=== PATIENT | male | born 1970 | race Caucasian/White ===

== ENCOUNTER 2019-10-31 03:32 | Emergency (ER) | payer MEDICAID, SELFPAY ==
[2019-10-31 03:34] VITALS: BP 139/91; PULSE 102; RESP 16; TEMP 36.9; O2SAT 94; BMI 21.7
--- NOTE | 2019-10-31 03:34 | ED_ITS ---
Entered by Naomi Lomeli, acting as scribe for HPI - Psych General: Chief Complaint: Psychiatric Symptoms Stated Complaint: SI/ETOH Time Seen by Provider: 10/31/19 03:38 Source: EMS Mode of arrival: EMS Limitations: no limitations History of Present Illness: HPI Narrative: 49 yo m came to the er by [facility] Ems for si and etoh. Onset was last night. Ems states that he had about a gallon of vodka today and that he also has a plan of taking some pills. When asked if he is suicidal he denies any suicidality. Patient is difficult to talk to at this time no due to his intoxication. MD complaint: suicidal ideation Onset (ago): day(s) (last night) Duration: constant Relieving factors: none Exacerbating factors: none Context: recent alcohol abuse Associated psychiatric symptoms: depression Associated symptoms: Reports depression Treatments prior to arrival: none Details of plan: Pt states that he has a plan to take medication and not wake back up. Review of Systems General: Reports: other (negative unless marked ) Const: Denies: fever, chills, body aches or change in appetite Eyes: Denies: blurry vision or eye discomfort ENMT: Denies: throat pain or dental pain Card: Denies: chest pain Resp: Denies: shortness of breath GI: Denies: abdominal pain, nausea, vomiting or diarrhea : Denies: painful urination Musc: Denies: neck pain or back pain Skin/Breast: Denies: rash Neuro: Denies: headache Psych: Reports: depression Luis A/Lymph: Denies: easy bruising All/Imm: Denies: hives PFSH ED PFSH: Statuses (acute, chronic, etc) shown below reflect problem list status as previously entered and may not be historically accurate Social History Smoking and tobacco status: current every day smoker Physical Exam Const: COMMON NORMALS: no apparent distress, oriented x3 and healthy appearing HENMT: COMMON NORMALS: normocephalic and head/scalp atraumatic HEAD & SCALP: normocephalic and atraumatic Eye: COMMON NORMALS: PERRL and EOMs intact bilaterally PUPIL: Yes PERRL Neck/C-Spine: COMMON NORMALS: full ROM and supple Chest: COMMONS NORMALS: inspection of chest normal and palpation of chest normal Resp: COMMON NORMALS: normal respiratory effort, no retractions, no use of accessory muscles and clear to auscultation bilaterally AUSCULTATION: clear to auscultation bilaterally Cardio: COMMON NORMALS: regular rate, regular rhythm and no murmurs RATE: regular rate RHYTHM: regular rhythm GI: COMMON NORMALS: normal to inspection, nondistended, normoactive bowel sounds, soft to palpation, non-tender and no masses PALPATION: Yes soft Extremity: COMMON NORMALS: normal to inspection and full ROM Neuro: COMMON NORMALS: oriented x3, moves all extremities and no focal motor deficits Psych: COMMON NORMALS: cooperative OTHER: pt is intoxicated Skin: COMMON NORMALS: no rashes or lesions noted and no wounds GENERAL SKIN EXAM: no rashes or lesions noted MDM - Psych MDM Narrative: Medical decision making narrative: Patient presents here with alcohol intoxication. Patient is not suicidal and I had Dr. Lerma interviewed patient and he believes patient is not suicidal or imminent threat to himself either. Will place patient on trazodone to help with sleeping and he is stable for discharge. He is to return if worsening. Lab Data: Labs: Lab Results 10/31/19 10/31/19 10/31/19 Range/Units 02:50 02:50 04:45 WBC 9.4 (4.0-10.0) 10^3/ uL RBC 4.72 (4.1-5.3) 10^6/u L Hgb 15.0 (11.7-16.6) g/dL Hct 45.5 (42.0-52.0) % MCV 96.4 H (80-94) fL MCH 31.8 (28.0-34.0) pg MCHC 33.0 (30.0-36.0) g/dL RDW 13.6 (12.1-15.1) % Plt Count 201 (130-400) 10^3/c mm MPV 10.3 (7.4-10.4) fL Neut % (Auto) 34.7 % Lymph % (Auto) 56.4 % [place] % (Auto) 5.1 % Eos % (Auto) 3.1 % Baso % (Auto) 0.5 % Neut # (Auto) 3.3 (1.8-7.7) 10^3/u L Lymph # (Auto) 5.3 H (0.8-4.8) 10^3/u L [place] # (Auto) 0.5 (0.2-0.9) 10^3/u L Eos # (Auto) 0.3 (0.0-0.8) 10^3/u L Baso # (Auto) 0.1 (0.0-0.1) 10^3/u L Nucleated RBC % (a uto) 0 % Nucleated RBCs # 0.0 /100WBC Sodium 143 (136-145) mmol/L Potassium 3.6 (3.5-5.1) mmol/L Chloride 103 (98-107) mmol/L Carbon Dioxide 26 (22-29) mmol/L Anion Gap 17.6 (5-19) BUN 10 (6-20) mg/dL Creatinine 0.9 (0.7-1.2) mg/dL GFR Calculation 89.0 L (90-130) mL/min Glucose 133 H (65-115) mg/dL Calcium 9.3 (8.5-10.5) mg/dL Total Bilirubin 0.2 (0.15-1.2) mg/dL AST 58 H (0-40) U/L ALT 63 H (0-41) U/L Alkaline Phosphata se 111 (40-130) IU/L Total Protein 6.8 (6.6-8.7) g/dL Albumin 3.9 (3.5-5.2) g/dL Globulin 2.9 (1.3-4.6) g/dL Salicylates < 0.3 L (3-10) mg/dL Urine Opiates Scre en Negative (Negative) ng/mL Acetaminophen < 5.0 L (10-30) ug/mL Ur Barbiturates Sc reen Negative (Negative) ng/mL Ur Phencyclidine S crn Negative (Negative) ng/mL Ur Amphetamines Sc reen Negative (Negative) ng/mL U Benzodiazepines Scrn Negative (Negative) ng/mL Urine Cocaine Scre en Negative (Negative) ng/mL U Marijuana (THC) Screen Negative (Negative) ng/mL Ethyl Alcohol 337 H* (0-10) mg/dL Discharge Plan Discharge Patient Disposition: Home, Self-Care Clinical Impression: Alcohol intoxication Qualifiers: Complication of substance-induced condition: uncomplicated Qualified Code(s): F10.920 - Alcohol use, unspecified with intoxication, uncomplicated Condition: Stable Prescriptions: New trazodone 100 mg tablet 100 mg PO DAILY PRN (Reason: insomnia) Qty: 14 RF: 0 Discharge Orders: Discharge Order (Routine); Ordered 10/31/19 Ordered By: Adrianna Davis Discharge Diet: Advance as tolerated Discharge Activity: Resume usual activity Patient Instructions: Alcohol Intoxication (ED) Discharge Date/Time: 10/31/19 06:55 Coding Level of Care Code ED Gripper Machine Operator for Chg Fwd Exam Problem Focused The documentation recorded by the Armani sandoval Stephanie Lyn, accurately reflects the service I personally performed and the decisions made by Susan berg Korby, MD Oct 31, 2019 03:32
--- NOTE | 2019-10-31 03:38 | XR_ITS ---
WS: [id number] PORTABLE CHEST HISTORY: dyspnea COMPARISON: 10/13/2016 Benign granuloma in the LEFT lower lung field. Lungs are otherwise clear. No pneumonia. Normal vascul ature. No pleural effusion or pneumothorax. Cardiac size: Normal. Mediastinum/Aorta: Mildly prominent pulmonary arteries. Early changes of pulmonary hypertension is farley spected. No osseous abnormality seen. XR/XR chest 1V portable [id number] IMPRESSION: 1. Benign granuloma LEFT lower lobe. 2. Early changes of mild pulmonary hypertension suspected.
[2019-10-31 03:48] VITALS: BP 134/99; PULSE 88; RESP 18; O2SAT 96
[2019-10-31 04:14] LABS: Basophils # 0.1 10^3/uL (0.0-0.1); Basophils % 0.5 %; Eosinophils # 0.3 10^3/uL (0.0-0.8); Eosinophils % 3.1 %; Hematocrit 45.5 % (42.0-52.0); Lymphocytes # 5.3 10^3/uL (0.8-4.8); Lymphocytes % 56.4 %; Mean Corpuscular Hemoglobin 31.8 pg (28.0-34.0); Mean Corpuscular Volume 96.4 fL (80-94); Mean Platelet Volume 10.3 fL (7.4-10.4); Monocytes # 0.5 10^3/uL (0.2-0.9); Monocytes % 5.1 %; Neutrophils # 3.3 10^3/uL (1.8-7.7); Neutrophils % 34.7 %; Nucleated Red Blood Cells % 0 %; Platelet Count 201 10^3/cmm (130-400); Red Blood Count 4.72 10^6/uL (4.1-5.3); Red Cell Distribution Width 13.6 % (12.1-15.1); White Blood Count 9.4 10^3/uL (4.0-10.0)
[2019-10-31 04:30] LABS: Alanine Aminotransferase 63 U/L (0-41); Albumin Level 3.9 g/dL (3.5-5.2); Alkaline Phosphatase 111 IU/L (40-130); Anion Gap 17.6 (5-19); Aspartate Amino Transferase 58 U/L (0-40); Blood Urea Nitrogen 10 mg/dL (6-20); Calcium 9.3 mg/dL (8.5-10.5); Carbon Dioxide 26 mmol/L (22-29); Chloride 103 mmol/L (98-107); Globulin 2.9 g/dL (1.3-4.6); Glucose 133 mg/dL (65-115); Potassium 3.6 mmol/L (3.5-5.1); Sodium 143 mmol/L (136-145); Total Bilirubin 0.2 mg/dL (0.15-1.2); Total Protein 6.8 g/dL (6.6-8.7)
[2019-10-31 04:58] LABS: Acetaminophen < 5.0 ug/mL (10-30); Salicylate < 0.3 mg/dL (3-10)
[2019-10-31 05:02] LABS: Alcohol Level 337 mg/dL (0-10)
[2019-10-31] MEDS: nicotine 21 mg Patch 1 PATCH TRANSDERMA (05:02)
[2019-10-31 05:28] LABS: Amphetamines Screen Urine Negative (Negative); Barbiturates Screen Urine Negative (Negative); Benzodiazepines Screen Urine Negative (Negative); Cocaine Screen Urine Negative (Negative); Opiate Screen Urine Negative (Negative); PCP Screen Urine Negative (Negative); THC Screen Urine Negative (Negative)
[2019-10-31] MEDS: morphine 4 mg/mL SDV 1 mL IVP (05:33)
== END 2019-10-31 06:55 | disposition home or self-care (01) ==
PROVIDERS: Emergency Provider Emergency Medicine
DX: F10.129 Alcohol abuse with intoxication, unspecified (principal); Y90.8 Blood alcohol level of 240 mg/100 ml or more; F17.200 Nicotine dependence, unspecified, uncomplicated
CPT/HCPCS: 71045; 80053; 80307; 85025; 96374; 99282; 99283; J2270

== ENCOUNTER 2019-11-03 17:34 | Emergency (ER) | payer MEDICAID, SELFPAY | END 2019-11-03 20:30 | disposition admitted as inpatient to this hospital (09) | LOC: ER 11-09 11:26 | PROVIDERS: Emergency Provider Family Medicine | DX: T43.222A Poisoning by selective serotonin reuptake inhibitors, intentional self-harm, initial encounter (principal); T42.6X2A Poisoning by other antiepileptic and sedative-hypnotic drugs, intentional self-harm, initial encounter; F10.920 Alcohol use, unspecified with intoxication, uncomplicated; T50.912A Poisoning by multiple unspecified drugs, medicaments and biological substances, intentional self-harm, initial encounter; F17.210 Nicotine dependence, cigarettes, uncomplicated; J44.9 Chronic obstructive pulmonary disease, unspecified; F41.9 Anxiety disorder, unspecified | CPT/HCPCS: 71045; 80053; 80074; 80307; 81003; 82607; 82746; 83690; 83735; 84100; 85025; 85610; 93005; 94640; 99284; 99285 ==

== ENCOUNTER 2019-11-03 17:34 | Inpatient (IN) | payer MEDICAID, SELFPAY ==
[2019-11-03] VITALS (11 sets, daily range): BP systolic 116–145; BP diastolic 63–99; PULSE 75–98; RESP 10–19; TEMP 36.6–37.1; O2SAT 94–98; BMI 24.7
--- NOTE | 2019-11-03 17:36 | ED_ITS ---
Entered by Cecilia Orozco, acting as scribe for Jeramie Timmons MD, MSM HPI - Overdose General: Chief Complaint: Overdose Stated Complaint: OVERDOSE Time Seen by Provider: 11/03/19 17:36 Source: patient, EMS and RN notes reviewed Mode of arrival: EMS Limitations: no limitations History of Present Illness: HPI Narrative: 49 yo male presents to ED with an overdose. When the doctor asked the patient how he was doing, the patient told the doctor I speak Russian how about you? The patient states he hurts everywhere . EMS reports the has taken 6-8 Paroxetine 40mg since yesterday (his prescription is to take one a day) and he has taken an unknown amount of Gabapentin 300mg (an old prescription that belongs to his girlfriend, dated 09.07.2016). He said he just wants to sleep; EMS was told he was having trouble with his girlfriend and he wanted to hurt himself. The patient has drank quite a bit of vodka today with the medication. EMS states the patient was kicked out of his girlfriend's house. complaint: intentional overdose Onset (ago): minute(s) (37 (0461)) Time: 17:05 Timing confirmed by: family member Substance Ingested: Gabapentin: Strength of Substance: 300 Paroxetine: Strength of Substance: 40 Number of Pills Ingested: 8 Total Dose: 320 : Intent: wanted to go to sleep How Overdose Was Discovered: called family/friend and called 911 Context: Intentional Overdose: relationship problems and drug/ETOH problems Associated symptoms: depression Treatments Prior to Arrival: none Review of Systems General: Reports: 10 or more systems reviewed and unremarkable except in HPI and below Const: Denies: fever, chills or body aches Eyes: Reports: blind spots; Denies: change in vision or blurry vision ENMT: Denies: throat pain, enlarged tonsils, painful swallowing, hoarseness, mouth pain or swelling of lips/tongue Card: Reports: chest pain; Denies: palpitations, irregular heart rhythm, edema or swelling of feet/ankles Resp: Denies: shortness of breath, productive cough or non-productive cough GI: Denies: abdominal pain, nausea or vomiting : Denies: flank pain, painful urination, urinary frequency, urinary urgency or urinary hesitancy Musc: Denies: neck pain, back pain or extremity swelling Skin/Breast: Denies: rash, itching or redness Neuro: Denies: headache, numbness in extremities or weakness in extremities Endo: Denies: excessive urination, excessive thirst or tired all the time PFS ED PFSH: Medical History (Updated 11/03/19 @ 20:07 by Jaspal Velarde MD) Alcohol intoxication Anxiety and depression Surgical History (Updated 11/03/19 @ 20:05 by Jaspal Velarde MD) H/O abdominal surgery Family History (Updated 11/03/19 @ 20:06 by Jaspal Velarde MD) Other Diabetes Social History (Updated 11/03/19 @ 20:06 by Jaspal Velarde MD) Smoking and tobacco status: current every day smoker Alcohol intake: current Alcohol intake frequency: 3 or more drinks per day Alcohol type: hard liquor Substance/Drug Use: never Physical Exam Const: COMMON NORMALS: no apparent distress, average body habitus, oriented x3, no limitations, healthy appearing and well nourished; negative for alert GENERAL APPEARANCE: lethargic ORIENTATION/CONSCIOUSNESS: Yes lethargic and Yes other (drowsy) HENMT: COMMON NORMALS: normocephalic, head/scalp atraumatic and moist oral mucous membranes HEAD & SCALP: normocephalic and atraumatic MOUTH: other (slurred speech) Eye: COMMON NORMALS: PERRL, EOMs intact bilaterally, conjunctivae normal and no scleral icterus CONJUNCTIVA: Yes conjunctivae normal PUPIL: Yes PERRL Neck/C-Spine: COMMON NORMALS: full ROM, supple, no meningeal signs, no JVD and no carotid bruits Chest: COMMONS NORMALS: inspection of chest normal and palpation of chest normal Resp: COMMON NORMALS: normal respiratory effort, no retractions, no use of accessory muscles, clear to auscultation bilaterally and percussion normal AUSCULTATION: clear to auscultation bilaterally and wheezes PERCUSSION: percussion normal Cardio: COMMON NORMALS: no JVD, regular rate, regular rhythm, S1 normal heart sound, S2 normal heart sound, no gallops, no clicks, no murmurs, no rub and peripheral pulses 2+ throughout RATE: regular rate RHYTHM: regular rhythm HEART SOUNDS: S1 normal and S2 normal PERIPHERAL PULSES: pulses 2+ throughout GI: COMMON NORMALS: normal to inspection, nondistended, normoactive bowel sounds, soft to palpation, non-tender, no hepatosplenomegaly, no masses and no bruits PALPATION: Yes soft and Yes no hepatosplenomegaly : COMMON NORMALS: Yes no CVA tenderness BLADDER/KIDNEY EXAM: Yes no CVA tenderness Back/Pelvis: COMMON NORMALS: no CVA tenderness Extremity: COMMON NORMALS: normal to inspection, full ROM, normal capillary refill, no calf tenderness and no pedal edema Neuro: COMMON NORMALS: oriented x3 SENSORIUM/ORIENTATION: No alert and Yes lethargic MENINGEAL SIGNS: Yes no meningeal signs Skin: COMMON NORMALS: no rashes or lesions noted, no wounds, skin turgor normal, no jaundice, no petechiae and no mottling GENERAL SKIN EXAM: no rashes or lesions noted and turgor normal Course Vital Signs: Vital signs: Vital Signs Temperature 98.7 F 11/03/19 20:40 Pulse Rate 91 11/03/19 20:55 Respiratory Rate 19 H 11/03/19 20:55 Blood Pressure 131/81 11/03/19 20:55 Pulse Oximetry 95 11/03/19 20:55 MDM - Overdose MDM Narrative: Medical decision making narrative: Patient who presented to the ED with an intentional drug overdose after his girlfriend kicked him out of her house. He is also intoxicated with alcohol. In the ED he was stable and his labs were unremarkable except for his elevated alcohol levels. EKG unremarkable. He is admitted to the ICU for further evaluation and management. Medical Records: Attestation: I reviewed the patient's medical records. Lab Data: Attestation: I reviewed the patient's lab results. Labs: Lab Results 11/03/19 11/03/19 11/03/19 Range/Units 17:47 17:47 17:47 WBC 7.7 (4.0-10.0) 10^3/ uL RBC 4.68 (4.1-5.3) 10^6/u L Hgb 14.4 (11.7-16.6) g/dL Hct 43.7 (42.0-52.0) % MCV 93.4 (80-94) fL MCH 30.8 (28.0-34.0) pg MCHC 33.0 (30.0-36.0) g/dL RDW 13.4 (12.1-15.1) % Plt Count 157 (130-400) 10^3/c mm MPV 10.0 (7.4-10.4) fL Neut % (Auto) 42.7 % Lymph % (Auto) 48.4 % [place] % (Auto) 5.8 % Eos % (Auto) 2.6 % Baso % (Auto) 0.4 % Neut # (Auto) 3.3 (1.8-7.7) 10^3/u L Lymph # (Auto) 3.7 (0.8-4.8) 10^3/u L [place] # (Auto) 0.4 (0.2-0.9) 10^3/u L Eos # (Auto) 0.2 (0.0-0.8) 10^3/u L Baso # (Auto) 0.0 (0.0-0.1) 10^3/u L Nucleated RBC % (a uto) 0 % Nucleated RBCs # 0.0 /100WBC PT (10.5-13.3) SECO NDS INR (0.8-1.2) Sodium 143 (136-145) mmol/L Potassium 4.0 (3.5-5.1) mmol/L Chloride 105 (98-107) mmol/L Carbon Dioxide 26 (22-29) mmol/L Anion Gap 16.0 (5-19) BUN 14 (6-20) mg/dL Creatinine 0.8 (0.7-1.2) mg/dL GFR Calculation 101.9 (90-130) mL/min Glucose 102 (65-115) mg/dL Calcium 9.1 (8.5-10.5) mg/dL Phosphorus 4.4 (2.5-4.5) mg/dL Magnesium 2.3 (1.7-2.3) mg/dL Total Bilirubin 0.2 (0.15-1.2) mg/dL AST 110 H (0-40) U/L ALT 59 H (0-41) U/L Alkaline Phosphata se 135 H (40-130) IU/L Total Protein 6.9 (6.6-8.7) g/dL Albumin 4.3 (3.5-5.2) g/dL Globulin 2.6 (1.3-4.6) g/dL Lipase 57 (13-60) U/L Urine Color (Yellow) Urine Appearance (CLEAR) Urine pH (5-7) Ur Specific Gravit y (1.005-1.030) Urine Protein (Negative) Urine Glucose (UA) (Normal) Urine Ketones (Negative) Urine Occult Blood (Negative) Urine Nitrate (Negative) Urine Bilirubin (NEGATIVE) Urine Urobilinogen (Negative) mg/dL Ur Leukocyte Pearl ase (Negative) Salicylates < 0.3 L (3-10) mg/dL Urine Opiates Scre en (Negative) ng/mL Acetaminophen < 5.0 L (10-30) ug/mL Ur Barbiturates Sc reen (Negative) ng/mL Ur Phencyclidine S crn (Negative) ng/mL Ur Amphetamines Sc reen (Negative) ng/mL U Benzodiazepines Scrn (Negative) ng/mL Urine Cocaine Scre en (Negative) ng/mL U Marijuana (THC) Screen (Negative) ng/mL Ethyl Alcohol 358 H* (0-10) mg/dL 11/03/19 11/03/19 11/03/19 Range/Units 17:47 17:57 17:57 WBC (4.0-10.0) 10^3/ uL RBC (4.1-5.3) 10^6/u L Hgb (11.7-16.6) g/dL Hct (42.0-52.0) % MCV (80-94) fL MCH (28.0-34.0) pg MCHC (30.0-36.0) g/dL RDW (12.1-15.1) % Plt Count (130-400) 10^3/c mm MPV (7.4-10.4) fL Neut % (Auto) % Lymph % (Auto) % [place] % (Auto) % Eos % (Auto) % Baso % (Auto) % Neut # (Auto) (1.8-7.7) 10^3/u L Lymph # (Auto) (0.8-4.8) 10^3/u L [place] # (Auto) (0.2-0.9) 10^3/u L Eos # (Auto) (0.0-0.8) 10^3/u L Baso # (Auto) (0.0-0.1) 10^3/u L Nucleated RBC % (a uto) % Nucleated RBCs # /100WBC PT 12.30 (10.5-13.3) SECO NDS INR 0.89 (0.8-1.2) Sodium (136-145) mmol/L Potassium (3.5-5.1) mmol/L Chloride (98-107) mmol/L Carbon Dioxide (22-29) mmol/L Anion Gap (5-19) BUN (6-20) mg/dL Creatinine (0.7-1.2) mg/dL GFR Calculation (90-130) mL/min Glucose (65-115) mg/dL Calcium (8.5-10.5) mg/dL Phosphorus (2.5-4.5) mg/dL Magnesium (1.7-2.3) mg/dL Total Bilirubin (0.15-1.2) mg/dL AST (0-40) U/L ALT (0-41) U/L Alkaline Phosphata se (40-130) IU/L Total Protein (6.6-8.7) g/dL Albumin (3.5-5.2) g/dL Globulin (1.3-4.6) g/dL Lipase (13-60) U/L Urine Color Yellow (Yellow) Urine Appearance Clear (CLEAR) Urine pH 5 (5-7) Ur Specific Gravit y 1.015 (1.005-1.030) Urine Protein Neg (Negative) Urine Glucose (UA) Norm (Normal) Urine Ketones Negative (Negative) Urine Occult Blood Neg (Negative) Urine Nitrate Negative (Negative) Urine Bilirubin Neg (NEGATIVE) Urine Urobilinogen Norm (Negative) mg/dL Ur Leukocyte Pearl [place] Negative (Negative) Salicylates (3-10) mg/dL Urine Opiates Scre en Negative (Negative) ng/mL Acetaminophen (10-30) ug/mL Ur Barbiturates Sc reen Negative (Negative) ng/mL Ur Phencyclidine S crn Negative (Negative) ng/mL Ur Amphetamines Sc reen Negative (Negative) ng/mL U Benzodiazepines Scrn Negative (Negative) ng/mL Urine Cocaine Scre en Negative (Negative) ng/mL U Marijuana (THC) Screen Negative (Negative) ng/mL Ethyl Alcohol (0-10) mg/dL EKG Data^: EKG 1: Attestation: I personally reviewed and interpreted this EKG as follows: EKG interpretation date: 11/03/19 EKG interpretation time: 17:58 Prior EKG tracings: not available for review Interpretation: Normal sinus rhythm. Heart rate 82. No ST changes. Normal axis. Discharge Plan Discharge Patient Disposition: Admitted As Inpatient Admit Provider: Jaspal Velarde Clinical Impression: Intentional overdose of selective serotonin reuptake inhibitor (SSRI) Qualifiers: Encounter type: initial encounter Qualified Code(s): T43.222A - Poisoning by selective serotonin reuptake inhibitors, intentional self-harm, initial encounter Alcohol intoxication Qualifiers: Complication of substance-induced condition: uncomplicated Qualified Code(s): F10.920 - Alcohol use, unspecified with intoxication, uncomplicated Suicide attempt by multiple drug overdose Qualifiers: Encounter type: initial encounter Qualified Code(s): T50.912A - Poisoning by multiple unspecified drugs, medicaments and biological substances, intentional self-harm, initial encounter Gabapentin overdose Qualifiers: Encounter type: initial encounter Injury intent: intentional self-harm Qualified Code(s): T42.6X2A - Poisoning by other antiepileptic and sedative- hypnotic drugs, intentional self-harm, initial encounter Condition: Stable Discharge Date/Time: 11/03/19 20:30 Coding Level of Care Code ED Printing Press Machine Operator for Chg Fwd Exam Comprehensive The documentation recorded by the Pam sandoval Valerie R, accurately reflects the service I personally performed and the decisions made by Shanelle berg Adegoke I, MD, [facility] Nov 03, 2019 17:34
--- NOTE | 2019-11-03 17:45 | XR_ITS ---
WS: [id number] XR chest 1V portable [id number] REASON FOR EXAM: overdose FINDINGS: Comparisons were made to October 31, 2019. A granuloma is seen in the mid left chest unchanged since earlier exam. No pleural effusion, pulmonary edema, pneumonia, or mass effect. The hilum and mediastinum are normal. XR/XR chest 1V portable [id number] IMPRESSION: Negative chest for active pathology.
--- NOTE | 2019-11-03 17:45 | ECG_ITS ---
Measurements Intervals [place] Rate: 82 P: 66 [place]: 138 QRS: 78 QRSD: 97 T: 74 QT: 370 QTc: 433 SINUS RHYTHM Compared to ECG 10/13/2016 21:29:39 No significant changes Electronically Signed On 11-04-2019 9:12:42 CRUSHER AND BINDER OPERATOR by Slava Aguilar M.D. [email or web address]
--- NOTE | 2019-11-03 18:00 | PC.NURSE ---
Patient refuses to answer [place] suicide assessment questions. Patient closes his eyes and repeats I plead the fifth on that one.
[2019-11-03 18:01] LABS: Basophils % 0.4 %; Eosinophils # 0.2 10^3/uL (0.0-0.8); Eosinophils % 2.6 %; Hematocrit 43.7 % (42.0-52.0); Hemoglobin 14.4 g/dL (11.7-16.6); Lymphocytes # 3.7 10^3/uL (0.8-4.8); Lymphocytes % 48.4 %; Mean Corpuscular Hemoglobin 30.8 pg (28.0-34.0); Mean Corpuscular Volume 93.4 fL (80-94); Monocytes # 0.4 10^3/uL (0.2-0.9); Monocytes % 5.8 %; Neutrophils # 3.3 10^3/uL (1.8-7.7); Neutrophils % 42.7 %; Nucleated Red Blood Cells % 0 %; Platelet Count 157 10^3/cmm (130-400); Red Blood Count 4.68 10^6/uL (4.1-5.3); Red Cell Distribution Width 13.4 % (12.1-15.1); White Blood Count 7.7 10^3/uL (4.0-10.0)
[2019-11-03 18:08] LABS: Add Urine Microscopic? NO
--- NOTE | 2019-11-03 18:12 | PC.NURSE ---
radiology in the room at this time
[2019-11-03 18:14] LABS: Bilirubin Urine Neg (NEGATIVE); Blood Urine Neg (Negative); Glucose Urine UA Norm (Normal); Ketones Urine Negative (Negative); Leukocyte Esterase Urine Negative (Negative); Nitrate Urine Negative (Negative); Protein Urine Neg (Negative); Specific Gravity, Urine 1.015 (1.005-1.030); Urine Appearance Clear (CLEAR); Urine Color Yellow (Yellow); Urobilinogen Urine Norm (Negative); pH Urine 5 (5-7)
[2019-11-03 18:15] LABS: Alanine Aminotransferase 59 U/L (0-41); Albumin Level 4.3 g/dL (3.5-5.2); Alkaline Phosphatase 135 IU/L (40-130); Aspartate Amino Transferase 110 U/L (0-40); Blood Urea Nitrogen 14 mg/dL (6-20); Calcium 9.1 mg/dL (8.5-10.5); Carbon Dioxide 26 mmol/L (22-29); Chloride 105 mmol/L (98-107); Globulin 2.6 g/dL (1.3-4.6); Glomerular Filtration Rate 101.9 mL/min (90-130); Glucose 102 mg/dL (65-115); Sodium 143 mmol/L (136-145); Total Bilirubin 0.2 mg/dL (0.15-1.2); Total Protein 6.9 g/dL (6.6-8.7)
[2019-11-03 18:18] LABS: Acetaminophen < 5.0 ug/mL (10-30); Salicylate < 0.3 mg/dL (3-10)
[2019-11-03 18:19] LABS: Alcohol Level 358 mg/dL (0-10)
[2019-11-03] MEDS: ipratropium-albuterol 3 mL Neb INHALATION (18:20)
--- NOTE | 2019-11-03 18:20 | PC.NURSE ---
Patient placed in trauma room 10 due to overdose status. Per both his girlfriend, Martha Strong and his brother via phone patient has been threatening and discussing suicide with them frequently and has addiction issues with alcohol; both parties have been informed that if they are available filling out an affidavit would be the best way to get help for the patient as they requested, they are unable to do this as the brother is out of state and the girlfriend lives in [place]. Patient is very indirect when asked about suicide and thoughts of suicide making inappropriate jokes and refusing to answer the questions for [place] scale, stating I plead the fifth.
--- NOTE | 2019-11-03 18:23 | PC.NURSE ---
Poison control contacted in regards to the medications patient took. Spoke with Flaca who states he is subtoxic on the Gabapentin and she does not have any worries regarding this ingestion; however the Paroxetine he does have increased risk for toxicity since he consumed >100mg. ED physician notified.
[2019-11-03 18:33] LABS: Amphetamines Screen Urine Negative (Negative); Barbiturates Screen Urine Negative (Negative); Benzodiazepines Screen Urine Negative (Negative); Cocaine Screen Urine Negative (Negative); Opiate Screen Urine Negative (Negative); PCP Screen Urine Negative (Negative); THC Screen Urine Negative (Negative)
[2019-11-03] MEDS: nicotine 21 mg Patch 1 PATCH TRANSDERMA (19:05)
--- NOTE | 2019-11-03 19:22 | PC.NURSE ---
Introduced self to patient and initiated vital signs. Patient presents A&O x 4. NAD, ABCs intact, MAEW and agreeable to treatment. Respirations are even and unlabored. Pt states medications taken before coming to ER are8- Paroxitine and 4 Gabepentin. Pt states that the chief complaint for the ER visit today is due to depression and SI. IV observed in left forearm. Pt denies any vision disturbances or lightheadedness. Bed left in lowest position in semi-fowlers with side rails up.Reassured patient of needs and will continue to monitor.
--- NOTE | 2019-11-03 19:56 | PM.HP ---
Providers/Chief Complaint Admitting Physician: Jaspal Velarde MD Chief Complaint: OVERDOSE History of Present Illness Erik Laws is a 49 year old male with a past medical history of depression and anxiety, chronic back pain, alcohol dependence and abuse, COPD who presents to the emergency room from the behest of patient's brother due to concerns of alcohol intoxication and medication overdose. Currently no family members are at bedside, most of the history was obtained from the patient, patient smells of alcohol, and is acutely intoxicated, but was able to answer most questions clearly. Patient states that his girlfriend recently has left him, and he has been drinking alcohol, he presented to the emergency room a few days ago for acute alcohol intoxication, was sent home with some trazodone to help with his sleep.. At home patient states that he lives near [place], lives by himself, his choice of drink is vodka, he stated that his last drink of vodka was half a pint at 11 AM this morning roughly, he drank with his neighbor, patient also states that he has been feeling down, depressed, sad as his girlfriend has left him, and he has not taken his paroxetine for some time, still in order to catch up, he took roughly 8 to 10 pills of his Paxil. In addition patient states that he takes gabapentin 300 mg 3 tablets 3 times daily for back pain, he states that he took maybe 4 to 5 pills of his gabapentin. Patient states that he has not taken the trazodone that he has prescribed. Patient also states that he has some oxycodone and morphine left from a surgical procedure roughly a year ago, that he took yesterday, denies currently taking any of narcotic medications. Patient also jokingly stated that he made in his neighbor took some cocaine and methamphetamines, but later recanted that statement, stated he was joking. Patient states that he does feel down, depressed, sad. Denies this being a suicide attempt, denies homicidal ideation, denies suicidal ideation, denies auditory visual or tactile hallucinations. 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 In addition patient states that he had one episode of hemoptysis roughly 5 months ago, he did not let anybody know. Patient denies taking any other medications. Review of Systems Const: Denies: fever, chills, fatigue or malaise Eyes: Denies: change in vision or blurry vision ENMT: Denies: nasal congestion Card: Denies: chest pain, palpitations or irregular heart rhythm Resp: Denies: shortness of breath, productive cough, non-productive cough or wheezing GI: Denies: abdominal pain, nausea, vomiting, vomiting blood, diarrhea, constipation, blood in stool or black tarry stool : Denies: flank pain, difficulty urinating, painful urination or urinary frequency Musc: Denies: neck pain or back pain Skin/Breast: Denies: rash Neuro: Denies: headache, dizziness or vertigo Psych: Denies: anxiety or depression Endo: Denies: excessive urination or excessive thirst Medications/Allergies Home Medications Medication Instructions Recorded Confirmed Last Taken Type gabapentin 300 mg PO TID 11/03/19 11/03/19 11/03/19 History paroxetine HCl [Paxil] 40 mg PO DAILY 11/03/19 11/03/19 11/03/19 History Allergies Allergy/AdvReac Type Severity Reaction Status Date / Time acetaminophen Allergy ADR-Nausea Verified 10/31/19 03:49 [From Darvocet-N] codeine Allergy ADR-Nausea Verified 10/31/19 03:49 propoxyphene Allergy ADR-Nausea Verified 10/31/19 03:49 [From Darvocet-N] Additional Medication Information Additional Medication Information: Trazodone 100 mg p.o. daily as needed PFSH Acute PFSH: Medical History (Updated 11/03/19 @ 20:07 by Jaspal Velarde MD) Alcohol intoxication Anxiety and depression Surgical History (Updated 11/03/19 @ 20:05 by Jaspal Velarde MD) H/O abdominal surgery Family History (Updated 11/03/19 @ 20:06 by Jaspal Velarde MD) Other Diabetes Social History (Updated 11/03/19 @ 20:06 by Jaspal Velarde MD) Smoking and tobacco status: current every day smoker Alcohol intake: current Alcohol intake frequency: 3 or more drinks per day Alcohol type: hard liquor Substance/Drug Use: never Vitals/I&O/Wt Last Vital Signs Temp 97.9 F 11/03/19 18:13 Pulse 82 11/03/19 19:14 Resp 18 11/03/19 19:14 BP 116/77 11/03/19 19:14 Pulse Ox 94 11/03/19 19:14 Weight last 48 hrs Weight 82.554 kg Physical Exam Const: COMMON NORMALS: no apparent distress and alert GENERAL APPEARANCE: cooperative, comfortable and disheveled HENMT: COMMON NORMALS: normocephalic HEAD & SCALP: normocephalic Eye: COMMON NORMALS: PERRL, EOMs intact bilaterally and no papilledema GENERAL EYE: normal appearance of both eyes PUPIL: Yes PERRL DIRECT OPHTHALMOSCOPY: Yes no papilledema Neck/C-Spine: COMMON NORMALS: full ROM, no lymphadenopathy, no JVD and thyroid normal THYROID: thyroid normal Lymph: LYMPHATIC: no lymphadenopathy noted Resp: COMMON NORMALS: normal respiratory effort, no retractions, no use of accessory muscles and clear to auscultation bilaterally AUSCULTATION: clear to auscultation bilaterally Cardio: COMMON NORMALS: no JVD, regular rate, regular rhythm, S1 normal heart sound, S2 normal heart sound, no gallops, no clicks and no murmurs RATE: regular rate RHYTHM: regular rhythm HEART SOUNDS: S1 normal and S2 normal GI: COMMON NORMALS: normal to inspection, nondistended, normoactive bowel sounds, soft to palpation, non-tender and no hepatosplenomegaly PALPATION: Yes soft and Yes no hepatosplenomegaly Extremity: COMMON NORMALS: normal to inspection, full ROM and no pedal edema Neuro: COMMON NORMALS: CN's II-XII intact bilaterally, moves all extremities and no focal motor deficits SENSORIUM/ORIENTATION: Yes alert, Yes oriented to person, Yes oriented to place and No oriented to time Psych: COMMON NORMALS: cooperative, denies hallucinations, denies homicidal ideation and denies suicidal ideation; negative for activity/motor behavior normal APPEARANCE: Yes unkempt ACTIVITY/MOTOR BEHAVIOR: Yes fidgeting and Yes disorganized MOOD & AFFECT: Yes elevated mood THOUGHT PROCESS: disorganized THOUGHT CONTENT: No suicidality and No homicidality ATTENTION/CONCENTRATION: Yes attention grossly impaired and Yes concentration grossly impaired Data : 11/03/19 17:47 11/03/19 17:47 A&P Assessment and plan (1) Alcohol intoxication: -This is patient's second ER visit in the last 72 hours for acute alcohol intoxication -Patient has a blood alcohol level of 358 -As a review of the records patient has presented to the ER back in 2017 for acute alcohol intoxication, seems as if this is acute on chronic for him -With his one episode of hemoptysis, and transaminitis, has some evidence of chronic liver cirrhosis and esophageal varices, and associated complications Plan: -CIWA -Banana bag -Thiamine, folic acid -No history of alcohol withdrawal seizures, delirium tremens -We will do liver ultrasound, INR, mag, phos Status: Acute Qualifiers: Complication of substance-induced condition: uncomplicated Qualified Code(s): F10.920 - Alcohol use, unspecified with intoxication, uncomplicated Code(s): F10.929 - Alcohol use, unspecified with intoxication, unspecified (2) Medication overdose: -8 pills of paroxetine missing (which is his own medication), 3 pills of gabapentin missing (which is his girlfriend's medications), the status on how many trazodone pills he has taken is unknown, patient denies taking trazodone, states that he has oxycodone and morphine at home, but denies using them -Urine toxicology salicylates and acetaminophen were negative, the rest of the his urine toxicology screen was unremarkable -As there is a possibility of trazodone overdose, there significant concern of cardiac toxicity -QRS 97 ms, QTC 433 ms, heart rate 82, NM interval 130 ms Plan: -Admit to ICU -As patient denies suicidal, homicidal ideation he does not require 96-hour hold, and is voluntarily being admitted -Serial EKGs, monitor QTC, telemetry monitoring -Poison control has already been contacted, advised to continue as above Status: Acute Code(s): T50.901A - Poisoning by unspecified drugs, medicaments and biological substances, accidental (unintentional), initial encounter (3) Intentional overdose of selective serotonin reuptake inhibitor (SSRI): Status: Acute Qualifiers: Encounter type: initial encounter Qualified Code(s): T43.222A - Poisoning by selective serotonin reuptake inhibitors, intentional self-harm, initial encounter Code(s): T43.222A - Poisoning by selective serotonin reuptake inhibitors, intentional self-harm, initial encounter (4) Gabapentin overdose: Status: Acute Qualifiers: Encounter type: initial encounter Injury intent: intentional self-harm Qualified Code(s): T42.6X2A - Poisoning by other antiepileptic and sedative-hypnotic drugs, intentional self-harm, initial encounter Code(s): T42.6X1A - Poisoning by other antiepileptic and sedative-hypnotic drugs, accidental (unintentional), initial encounter (5) Anxiety and depression: Patient reports feeling down depressed and sad- Continue paroxetine 40 mg once daily Once patient is medically stable, will consult psychiatry for evaluation Status: Acute Code(s): F41.9 - Anxiety disorder, unspecified; F32.9 - Major depressive disorder, single episode, unspecified (6) COPD (chronic obstructive pulmonary disease): Ipratropium as needed Status: Acute Code(s): J44.9 - Chronic obstructive pulmonary disease, unspecified Attestations Medical Necessity Statement*: Patient requires hospitalization, inpatient, greater than 2 midnights for acute alcohol intoxication, medication overdose Coding Level of Care Code Acute 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
--- NOTE | 2019-11-03 20:07 | ECG_ITS ---
Measurements Intervals [place] Rate: 79 P: 34 SD: 113 QRS: 66 QRSD: 97 T: 68 QT: 388 QTc: 446 SINUS RHYTHM WITH SHORT SD INTERVAL Compared to ECG 10/13/2016 21:29:39 Short SD interval now present Electronically Signed On 11-04-2019 9:14:49 LUNCHROOM SUPERVISOR by Slava Aguilar M.D. [id number]
--- NOTE | 2019-11-03 20:31 | PC.NURSE ---
Received from the ER per bed and admitted to ICU 11 with sitter at bedside. Pt is alert and cooperative.
[2019-11-03 20:38] LABS: INR 0.89 (0.8-1.2)
[2019-11-03 20:46] LABS: Lipase 57 U/L (13-60); Magnesium 2.3 mg/dL (1.7-2.3); Phosphorus 4.4 mg/dL (2.5-4.5)
--- NOTE | 2019-11-03 21:00 | PC.NURSE ---
Pt belongings Pt belongings consisting of 1 tshirt, 1 hoodie, 1 pair of jeans , 1 pair of shoes and wallet containing several cards and 3 one dollar bills placed in closet in patient room. 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 One bottle containing Paroxetine 40 mg tabs 23 tablets and a second bottle belonging to Martha Strong containing Gabapentin 300mg 34 capsules.
[2019-11-03] MEDS: enoxaparin 40 mg/0.4 mL Syringe SUBCUT (21:12)
[2019-11-03] MEDS: folic acid 1 MG, multivitamin inj 10 ML, thiamine 100 MG in sodium chloride 0.9% 1,000 ML 252.8 MG IV (21:12)
[2019-11-03] MEDS: LORazepam 2 mg Tablet PO (22:11)
[2019-11-03 22:38] LABS: Folate Level 4.9 ng/mL (4.5-32.2)
[2019-11-03 22:39] LABS: Vitamin B12 348 pg/mL (232-1245)
[2019-11-04] VITALS (15 sets, daily range): BP systolic 118–158; BP diastolic 63–98; PULSE 16–115; RESP 12–35; TEMP 36.5–37.4; O2SAT 68–97
[2019-11-04] MEDS: sodium chloride 0.9% 1,000 ML 100 ML IV ×2 (01:27→11:22)
[2019-11-04 05:26] LABS: Basophils % 0.3 %; Eosinophils # 0.2 10^3/uL (0.0-0.8); Eosinophils % 2.3 %; Hematocrit 41.6 % (42.0-52.0); Hemoglobin 13.4 g/dL (11.7-16.6); Lymphocytes # 3.2 10^3/uL (0.8-4.8); Lymphocytes % 44.1 %; Mean Corpuscular HGB Conc 32.2 g/dL (30.0-36.0); Mean Corpuscular Hemoglobin 30.3 pg (28.0-34.0); Mean Corpuscular Volume 94.1 fL (80-94); Mean Platelet Volume 10.2 fL (7.4-10.4); Monocytes # 0.3 10^3/uL (0.2-0.9); Monocytes % 4.4 %; Neutrophils # 3.6 10^3/uL (1.8-7.7); Neutrophils % 48.8 %; Nucleated Red Blood Cells % 0 %; Platelet Count 150 10^3/cmm (130-400); Red Blood Count 4.42 10^6/uL (4.1-5.3); Red Cell Distribution Width 13.5 % (12.1-15.1); White Blood Count 7.3 10^3/uL (4.0-10.0)
[2019-11-04 05:52] LABS: Alanine Aminotransferase 49 U/L (0-41); Albumin Level 3.3 g/dL (3.5-5.2); Alkaline Phosphatase 104 IU/L (40-130); Aspartate Amino Transferase 92 U/L (0-40); Blood Urea Nitrogen 11 mg/dL (6-20); Calcium 8.4 mg/dL (8.5-10.5); Carbon Dioxide 25 mmol/L (22-29); Chloride 105 mmol/L (98-107); Globulin 2.9 g/dL (1.3-4.6); Glomerular Filtration Rate 118.9 mL/min (90-130); Glucose 94 mg/dL (65-115); Magnesium 1.9 mg/dL (1.7-2.3); Phosphorus 4.6 mg/dL (2.5-4.5); Sodium 143 mmol/L (136-145); Thyroid Stimulating Hormone 0.59 uIU/mL (0.27-4.20); Total Bilirubin 0.3 mg/dL (0.15-1.2); Total Protein 6.2 g/dL (6.6-8.7)
--- NOTE | 2019-11-04 07:36 | PC.NURSE ---
awakens easily. oriented x 3.
--- NOTE | 2019-11-04 08:18 | P.PN_ITS ---
Subjective Subjective: Interval history: Erik reports he is doing okay this morning. I asked him, if he was significantly depressed, took the Paxil to hurt himself, or felt like hurting himself now. He responded the same to all questions, I do not know. He reports no prior history of alcohol withdrawal. He was recently in the emergency department 3 days before with concerns of sadness, depression Vitals/I&O/Wt Last Vital Signs Temp 98.7 F 11/03/19 20:40 Pulse 85 11/04/19 06:00 Resp 17 11/04/19 06:00 BP 122/89 11/04/19 06:00 Pulse Ox 97 11/04/19 04:00 11/03/19 11/04/19 11/04/19 22:59 06:59 14:59 Intake Total 1371.2 / 1371.2 Output Total 650 / 650 Balance 721.2 / 721.2 Weight last 48 hrs Weight 82.554 kg Physical Exam Narrative: EXAM NARRATIVE: General exam no apparent distress, sleepy appearing Cardiovascular regular rate and rhythm without murmur Lungs bilateral expiratory wheezes Abdomen is soft, positive bowel sounds Extremities no cyanosis clubbing or edema Data : 11/04/19 04:55 11/04/19 04:55 A&P Assessment and plan (1) Intentional overdose of selective serotonin reuptake inhibitor (SSRI): Patient is evasive, to why he took the medicine. He reports I do not kn ow . I have concerns this was a suicidal attempt or at least a gesture. Psychiatric consultation is warranted. Continue one-on-one If patient tries to leave consider 96-hour hold May need transfer to inpatient neuropsychiatric unit. Status: Acute Qualifiers: Encounter type: initial encounter Qualified Code(s): T43.222A - Poisoning by selective serotonin reuptake inhibitors, intentional self-harm, initial encounter Code(s): T43.222A - Poisoning by selective serotonin reuptake inhibitors, intentional self-harm, initial encounter (2) Alcohol intoxication: Has received fluids overnight. Will need to monitor for withdrawal but no obvious active withdrawal. Status: Acute Qualifiers: Complication of substance-induced condition: uncomplicated Qualified Code(s): F10.920 - Alcohol use, unspecified with intoxication, uncomplicated Code(s): F10.929 - Alcohol use, unspecified with intoxication, unspecified (3) Anxiety and depression: Will consult psychiatry for evaluation Status: Acute Code(s): F41.9 - Anxiety disorder, unspecified; F32.9 - Major depressive disorder, single episode, unspecified (4) COPD (chronic obstructive pulmonary disease): Currently wheezing. Nebs ordered. Status: Acute Code(s): J44.9 - Chronic obstructive pulmonary disease, unspecified Additional A&P Information Tobacco dependency Alcoholism Transaminitis. Hepatic ultrasound ordered. 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
[2019-11-04] MEDS: ipratropium-albuterol 3 mL Neb INHALATION (08:35)
[2019-11-04] MEDS: thiamine 100 mg Tablet PO (08:41)
[2019-11-04] MEDS: folic acid 1 mg Tablet PO (08:41)
[2019-11-04] MEDS: pantoprazole DR 40 mg Tablet PO (08:41)
[2019-11-04] MEDS: multivitamin therapeutic Tablet 1 TAB PO (08:41)
[2019-11-04] MEDS: PARoxetine 20 mg Tablet 40 MG PO (08:43)
[2019-11-04 09:36] LABS: Hepatitis A Antibody IgM. Non-Reactive (Nonreactive); Hepatitis B Core IgM Non-Reactive (Nonreactive); Hepatitis B Surface Antigen. Non-Reactive (Nonreactive); Hepatitis C Virus Antibody Non-Reactive (Nonreactive)
[2019-11-04] MEDS: ondansetron 2 mg/ML SDV 2 mL 4 MG IVP (10:25)
[2019-11-04] MEDS: LORazepam 2 mg Tablet PO ×2 (10:25→17:22)
--- NOTE | 2019-11-04 13:55 | PM.PSYCN ---
Providers/Reason for Consult Consulting Physican/Specialty*: Dr. Gomez?psychiatry Reason for Consult*: suicidality in imminent risk Attending Physician: Eloy Lake MD Psych Consult HPI History of Present Illness Erik Laws is a 49 year old male was admitted to the intensive care unit after second presentation to the emergency room in a week. On both occasions he was quite inebriated.on this presentation, he also had apparently ingested at least 6 paroxetine and an unknown number of gabapentin. Laboratory Tests 10/31/19 10/31/19 11/03/19 02:50 04:45 17:47 AST 110 H ALT 59 H Alkaline Phosphatase 135 H Urine Opiates Screen Negative Ur Barbiturates Screen Negative Ur Phencyclidine Scrn Negative Ur Amphetamines Screen Negative U Benzodiazepines Scrn Negative Urine Cocaine Screen Negative U Marijuana (THC) Screen Negative Ethyl Alcohol 337 H* 358 H* 11/03/19 17:57 AST ALT Alkaline Phosphatase Urine Opiates Screen Negative Ur Barbiturates Screen Negative Ur Phencyclidine Scrn Negative Ur Amphetamines Screen Negative U Benzodiazepines Scrn Negative Urine Cocaine Screen Negative U Marijuana (THC) Screen Negative Ethyl Alcohol 11/04/2019: this physician attempted to interview the patient this afternoon. He was somnolent and in mild distress. He requested that the interview be delayed as he did not feel well. Nursing staff was interviewed and the patient is not medically stable. Plan: Will return at a later time for a full interview and assessment with recommendations. PLAN: an affidavit will be filed such that he be held until he can be interviewed. -11/05/2019 Chief complaint: I don't know what you are talking about I wasn't here 3 days ago. History of present illness: Erik Laws presented to the emergency room on 10/31/2016 with a blood alcohol level of 337. While this was a potentially life-threatening alcohol level, he was able to convince caregivers that this was not a suicide attempt but an accidental alcohol binge overdose. He was sent home. He returned 3 days later with a blood alcohol level of 357. His liver enzymes had started to climb indicating continued intense alcohol use, he also had ingested reportedly 8 pills of peroxide teen and a similar amount of gabapentin. It is noteworthy that on recounting these events, he does not recall the first time he came into the hospital. The patient steadfastly denies that this was a suicide attempt. He denies ever contemplating ending his own life. However, he does report drinking at least 3 bottles of vodka per week. He is quite vague about how large the bottles are and the size of the bottles changes as the tone of the interview changes. We will likely never know because she is a 49-year-old man who is living alone. He is living alone because the woman with whom he had a romantic relationship was required to move away by her family. Her family didn't like me and my family didn't like her. They have been together for 3 years. There are still in contact. However he is suffering the effects of this romantic breakup. He cannot give me an account of what he does on a daily basis. He has a dog that he is worried about. He recognizes that he is in dire straits and is intending to move his trailer to [place] to go back and live with his parents. He has seen a physician in the past on an outpatient basis to try and deal with his alcohol abuse. However, he cannot afford the medications which would reduce craving. His primary care physician did give him an antidepressant to try and help but it has not provided benefit. He has never been in a treatment program. He said that one year ago, he stopped drinking for a whole month. He said it was not difficult and he did it purely by willpower. When asked why he decided to stop drinking for an a month, he avoids the topic. Mental health history: he has never been through alcohol treatment program. No further information is available regarding his mental health history. Social history: no information is available at this time. Legal history:we are unable to check the public record for criminal activity on this holiday Past medical history:limited to that acquired by nursing staff in the emergency room. Mental Status Exam: patient is not felt to be a reliable informant though as the interview progresses, he becomes more earnest in his answers and more believable. He is motivated to present himself in a fashion of having no pathology and requiring minimal intervention. Much of the information he provides are approximations but the approximations are internally consistent. Appearance: hygiene is disheveled; he is tremulous, gait is unremarkable; AIMS=0 Speech: Speech is of normal rate and rhythm and easily understood. Thought processes: Thought processes are abstract. Judgment is adequate for safety. Associations: intact Psychotic processes: There is no indication of guarding or paranoia. There is no attention to the internal stimuli. Auditory and visual hallucinations are denied. Judgment: Insight is fair. Problem solving skills are adequate for safety. Orientation: The patient is oriented to person, place time and situation. Memory: no deficits noted in immediate, intermediate, or remote spheres. Attention: The patient is alert and interpersonally engaged. Language: Verbalizations are coherent. Fund of knowledge: Fund of knowledge is adequate. Affect/Mood: Affect is and tearful with a depressed mood. . Admitted to having episodic suicidal ideationbut no specific intent or plan. Affective range constricted Psychosis: perception unimpaired except through cognitive distortion; reality testing intact. 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 He acknowledges his degree of emotional distress but minimizes the potential lethality or the degree of emotional burden of his current situation. While his problem-solving skills are good, his insight is clouded by cognitive distortion. He is experiencing mild symptoms of alcohol withdrawal but is at risk for delirium tremens and seizures. He will be placed on an alcohol withdrawal protocol. He will be started on Celexa for depression. Hopefully within the time it takes for him to use negotiate the withdrawal period, he will develop improved insight and a better set of plans for discharge. Treatment plan: Due to the psychiatric conditions and treatment listed in the Assessment and Plan - the patient requires continued hospitalization. Will provide a safe and therapeutic environment for patient.. Will continue inpatient treatment to allow for medication adjustment and monitoring. Will continue q15 min safety checks. Erik Laws is a 49-year-old man with alcohol abuse disorder who has been given behaving in a self-destructive manner to the extent that his life has been placed in danger. He acknowledges his degree of emotional distress but minimizes the potential lethality or the degree of emotional burden of his current situation. While his problem-solving skills are good, his insight is clouded by cognitive distortion. He is experiencing mild symptoms of alcohol withdrawal but is at risk for delirium tremens and seizures. He will be placed on an alcohol withdrawal protocol. He will be started on Celexa for depression. Hopefully within the time it takes for him to use negotiate the withdrawal period, he will develop improved insight and a better set of plans for discharge. Monitor patient's mood, sleep, appetite, and behavior closely. Encourage patient to participate in individual and group therapeutic sessions on the [place]. Estimated length of stay 5 days The expected benefits and potential side effects of patient's psychiatric medications were discussed with the patient. The patient understands and consents to treatment.CRITERIA FOR DISCHARGE: stable on medications and no longer an imminent risk Meds Current Medications: Current Medications Generic Name Dose Route Start Last Admin Trade Name Freq PRN Reason Stop Dose Admin Albuterol/Ipratrop ium 3 ml 11/04/19 08:17 11/04/19 08:35 Duoneb INHALATION 3 ml Q4H PRN Administration SHORTNESS OF GATO TH Enoxaparin Sodium 40 mg 11/03/19 20:07 11/03/19 21:12 Lovenox SUBCUT 40 mg Q24H RL Administration Folic Acid 1 mg 11/04/19 09:00 11/04/19 08:41 Folic Acid PO 1 mg DAILY RL Administration Sodium Chloride 1,000 mls @ 100 m ls/hr 11/03/19 19:30 11/04/19 11:22 Sodium Chloride 0.9% IV 100 mls/hr .Q10H RL Administration Lorazepam 2 mg 11/03/19 20:07 11/04/19 10:25 Ativan PO 2 mg PROTOCOL PRN Administration WITHDRAWAL Protocol Multivitamins Ther apeutic 1 tab 11/04/19 09:00 11/04/19 08:41 Multivitamin Tab PO 1 tab DAILY RL Administration Ondansetron HCl 4 mg 11/03/19 20:07 11/04/19 10:25 Zofran IVP 4 mg Q8H PRN Administration vomiting, or N/V if npo Pantoprazole Sodiu m 40 mg 11/04/19 09:00 11/04/19 08:41 Protonix PO 40 mg DAILY RL Administration Paroxetine HCl 40 mg 11/04/19 09:00 11/04/19 08:43 Paxil PO 40 mg DAILY RL Administration Thiamine Mononitra te 100 mg 11/04/19 09:00 11/04/19 08:41 Vitamin B-1 PO 100 mg DAILY RL Administration PFSH NPU PFSH: Medical History (Updated 11/03/19 @ 20:07 by Jaspal Velarde MD) Alcohol intoxication Anxiety and depression Surgical History (Updated 11/03/19 @ 20:05 by Jaspal Velarde MD) H/O abdominal surgery Family History (Updated 11/03/19 @ 20:06 by Jaspal Velarde MD) Other Diabetes Social History (Updated 11/03/19 @ 20:06 by Jaspal Velarde MD) Smoking and tobacco status: current every day smoker Alcohol intake: current Alcohol intake frequency: 3 or more drinks per day Alcohol type: hard liquor Substance/Drug Use: never Mental Status Exam MSE Comments: Mental Status Exam: patient is not felt to be a reliable informant though as the interview progresses, he becomes more earnest in his answers and more believable. He is motivated to present himself in a fashion of having no pathology and requiring minimal intervention. Much of the information he provides are approximations but the approximations are internally consistent. Appearance: hygiene is disheveled; he is tremulous, gait is unremarkable; AIMS=0 Speech: Speech is of normal rate and rhythm and easily understood. Thought processes: Thought processes are abstract. Judgment is adequate for safety. Associations: intact Psychotic processes: There is no indication of guarding or paranoia. There is no attention to the internal stimuli. Auditory and visual hallucinations are denied. Judgment: Insight is fair. Problem solving skills are adequate for safety. Orientation: The patient is oriented to person, place time and situation. Memory: no deficits noted in immediate, intermediate, or remote spheres. Attention: The patient is alert and interpersonally engaged. Language: Verbalizations are coherent. Fund of knowledge: Fund of knowledge is adequate. Affect/Mood: Affect is and tearful with a depressed mood. . Admitted to having episodic suicidal ideationbut no specific intent or plan. Affective range constricted Psychosis: perception unimpaired except through cognitive distortion; reality testing intact. Vitals/I&O/Wt Last Vital Signs Temp 98.7 F 11/03/19 20:40 Pulse 87 11/04/19 10:00 Resp 15 11/04/19 10:00 BP 149/77 11/04/19 10:00 Pulse Ox 94 11/04/19 08:37 11/03/19 11/04/19 11/04/19 22:59 06:59 14:59 Intake Total 1371.2 / 1371.2 991.667 / 991.667 Output Total 650 / 650 Balance 721.2 / 721.2 991.667 / 991.667 Weight last 48 hrs Weight 82.554 kg A&P Additional A&P Information Erik Laws is a 49-year-old man with alcohol abuse disorder who has been given behaving in a self-destructive manner to the extent that his life has been placed in danger. He acknowledges his degree of emotional distress but minimizes the potential lethality or the degree of emotional burden of his current situation. While his problem-solving skills are good, his insight is clouded by cognitive distortion. He is experiencing mild symptoms of alcohol withdrawal but is at risk for delirium tremens and seizures. He will be placed on an alcohol withdrawal protocol. He will be started on Celexa for depression. Hopefully within the time it takes for him to use negotiate the withdrawal period, he will develop improved insight and a better set of plans for discharge. Attestations NPU Medical Necessity Statement*: patient will remain in hospital for 5 nights while negotiating the withdrawal process and try and assist him in establishing a reasonable plan to deal with his depression, alcohol abuse, and psychosocial isolation after discharge. Coding Level of Care Code Acute Ecommerce Marketing Specialist for Amadou Elliott
--- NOTE | 2019-11-04 19:08 | PC.NURSE ---
report given to [facility]. iv removed intact.
--- NOTE | 2019-11-04 19:09 | PC.NURSE ---
home meds sent to [facility]
--- NOTE | 2019-11-04 20:07 | US_ITS ---
WS: [id number] ABDOMINAL ULTRASOUND LIMITED REASON FOR VISIT: evaluate for liver cirhosis TECHNIQUE: Grayscale and Doppler ultrasound examination of the abdomen. FINDINGS: Pancreas: Within normal limits. Abdominal aorta and IVC: Normal size within normal limits. Liver: Liver measures 21.6 cm in length. 18.69 mm. Gallbladder: Gallbladder wall thickness measures 2.3 mm. No stones or wall thickening are seen in the gallbladder. Right kidney: Right kidney measures 11.0 cm x 6.3 cm x 6.9 cm. Right kidney . US/US abdomen limited [id number] IMPRESSION: Hepatomegaly. No other acute findings in the upper abdomen.
[2019-11-05 06:00] VITALS: BP 157/98; PULSE 78; RESP 16; TEMP 36.6; O2SAT 93
[2019-11-05] MEDS: multivitamin therapeutic Tablet 1 TAB PO (08:25)
[2019-11-05] MEDS: PARoxetine 20 mg Tablet 40 MG PO (08:25)
[2019-11-05] MEDS: folic acid 1 mg Tablet PO (08:26)
[2019-11-05] MEDS: pantoprazole DR 40 mg Tablet PO (08:26)
[2019-11-05] MEDS: thiamine 100 mg Tablet PO (08:26)
[2019-11-05 13:42] VITALS: BP 165/119; PULSE 90; RESP 20; TEMP 36.9; O2SAT 94
[2019-11-05] MEDS: LORazepam 2 mg Tablet PO ×2 (15:19→21:04)
--- NOTE | 2019-11-05 15:21 | PC.NURSE ---
Addendum entered by Mary Barkley LPN 11/05/19 16:00: CIWA SCORE NOW A 5, PT VOICED LESS ANXIETY Original Note: CIWA SCORE 10, ATIVAN 2 MG GIVEN PO PER PROTOCOL. MODERATE TREMORS NOTED TO BILATERAL UPPER ARMS, BLOOD PRESSURE 166/95
[2019-11-05 18:57] VITALS: BP 154/88
[2019-11-05 20:15] VITALS: BP 153/94; PULSE 85; RESP 17; TEMP 36.9; O2SAT 96
[2019-11-05] MEDS: gabapentin 300 mg Capsule PO (21:04)
[2019-11-06 06:00] VITALS: BP 155/101; PULSE 104; RESP 22; TEMP 36.4; O2SAT 97
[2019-11-06] MEDS: folic acid 1 mg Tablet PO (08:23)
[2019-11-06] MEDS: gabapentin 300 mg Capsule PO ×2 (08:23→13:47)
[2019-11-06] MEDS: thiamine 100 mg Tablet PO (08:23)
[2019-11-06] MEDS: pantoprazole DR 40 mg Tablet PO (08:23)
[2019-11-06] MEDS: citalopram 20 mg Tablet PO (08:23)
[2019-11-06] MEDS: multivitamin therapeutic Tablet 1 TAB PO (08:23)
[2019-11-06 13:11] VITALS: BP 154/100; PULSE 105; RESP 20; TEMP 36.5; O2SAT 96
[2019-11-06] MEDS: nicotine 21 mg Patch 1 PATCH TRANSDERMA (13:20)
--- NOTE | 2019-11-06 13:25 | P.DS_ITS ---
Diagnoses at Discharge Discharge Diagnosis (1) Intentional overdose of selective serotonin reuptake inhibitor (SSRI): Status: Acute Qualifiers: Encounter type: initial encounter Qualified Code(s): T43.222A - Poisoning by selective serotonin reuptake inhibitors, intentional self-harm, initial encounter (2) Alcohol intoxication: Status: Acute Qualifiers: Complication of substance-induced condition: uncomplicated Qualified Code(s): F10.920 - Alcohol use, unspecified with intoxication, uncomplicated (3) Anxiety and depression: Status: Acute (4) COPD (chronic obstructive pulmonary disease): Status: Acute Reason for Visit Reason for Visit: Reason For Visit: OVERDOSE Brief History: : Erik Laws presented to the emergency room on 10/31/2016 with a blood alcohol level of 337. While this was a potentially life-threatening alcohol level, he was able to convince caregivers that this was not a suicide attempt but an accidental alcohol binge overdose. He was sent home. He returned 3 days later with a blood alcohol level of 357. His liver enzymes had started to climb indicating continued intense alcohol use, he also had ingested reportedly 8 pills of peroxide teen and a similar amount of gabapentin. Hospital Course Hospital Course Chief complaint: I don't know what you are talking about I wasn't here 3 days ago. History of present illness: Erik Laws presented to the emergency room on 10/31/2016 with a blood alcohol level of 337. While this was a potentially life-threatening alcohol level, he was able to convince caregivers that this was not a suicide attempt but an accidental alcohol binge overdose. He was sent home. He returned 3 days later with a blood alcohol level of 357. His liver enzymes had started to climb indicating continued intense alcohol use, he also had ingested reportedly 8 pills of peroxide teen and a similar amount of gabapentin. It is noteworthy that on recounting these events, he does not recall the first time he came into the hospital. The patient steadfastly denies that this was a suicide attempt. He denies ever contemplating ending his own life. However, he does report drinking at least 3 bottles of vodka per week. He is quite vague about how large the bottles are and the size of the bottles changes as the tone of the interview changes. We will likely never know because she is a 49-year-old man who is living alone. He is living alone because the woman with whom he had a romantic relationship was required to move away by her family. Her family didn't like me and my family didn't like her. They have been together for 3 years. There are still in contact. However he is suffering the effects of this romantic breakup. He cannot give me an account of what he d oes on a daily basis. He has a dog that he is worried about. He recognizes that he is in dire straits and is intending to move his trailer to [place] to go back and live with his parents. He has seen a physician in the past on an outpatient basis to try and deal with his alcohol abuse. However, he cannot afford the medications which would reduce craving. His primary care physician did give him an antidepressant to try and help but it has not provided benefit. He has never been in a treatment program. He said that one year ago, he stopped drinking for a whole month. He said it was not difficult and he did it purely by willpower. When asked why he decided to stop drinking for an a month, he avoids the topic. Mental health history: he has never been through alcohol treatment program. No further information is available regarding his mental health history. Social history: no information is available at this time. Legal history:we are unable to check the public record for criminal activity on this holiday Past medical history:limited to that acquired by nursing staff in the emergency room. Mental Status Exam: patient is not felt to be a reliable informant though as the interview progresses, he becomes more earnest in his answers and more believable. He is motivated to present himself in a fashion of having no pathology and requiring minimal intervention. Much of the information he provides are approximations but the approximations are internally consistent. Appearance: hygiene is disheveled; he is tremulous, gait is unremarkable; AIMS=0 Speech: Speech is of normal rate and rhythm and easily understood. Thought processes: Thought processes are abstract. Judgment is adequate for safety. Associations: intact Psychotic processes: There is no indication of guarding or paranoia. There is no attention to the internal stimuli. Auditory and visual hallucinations are denied. Judgment: Insight is fair. Problem solving skills are adequate for safety. Orientation: The patient is oriented to person, place time and situation. Memory: no deficits noted in immediate, intermediate, or remote spheres. Attention: The patient is alert and interpersonally engaged. Language: Verbalizations are coherent. Fund of knowledge: Fund of knowledge is adequate. Affect/Mood: Affect is and tearful with a depressed mood. . Admitted to having episodic suicidal ideationbut no specific intent or plan. Affective range constricted Psychosis: perception unimpaired except through cognitive distortion; reality testing intact. 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 He acknowledges his degree of emotional distress but minimizes the potential lethality or the degree of emotional burden of his cur rent situation. While his problem-solving skills are good, his insight is clouded by cognitive distortion. He is experiencing mild symptoms of alcohol withdrawal but is at risk for delirium tremens and seizures. He will be placed on an alcohol withdrawal protocol. He will be started on Celexa for depression. Hopefully within the time it takes for him to use negotiate the withdrawal period, he will develop improved insight and a better set of plans for discharge. Treatment plan: Due to the psychiatric conditions and treatment listed in the Assessment and Plan - the patient requires continued hospitalization. Will provide a safe and therapeutic environment for patient.. Will continue inpatient treatment to allow for medication adjustment and monitoring. Will continue q15 min safety checks. Erik Laws is a 49-year-old man with alcohol abuse disorder who has been given behaving in a self-destructive manner to the extent that his life has been placed in danger. He acknowledges his degree of emotional distress but minimizes the potential lethality or the degree of emotional burden of his current situation. While his problem-solving skills are good, his insight is clouded by cognitive distortion. He is experiencing mild symptoms of alcohol withdrawal but is at risk for delirium tremens and seizures. He will be placed on an alcohol withdrawal protocol. He will be started on Celexa for depression. Hopefully within the time it takes for him to use negotiate the withdrawal period, he will develop improved insight and a better set of plans for discharge. we will start lorazepam 1 mg 3 times a day and taper it over the next 4 days. Gabapentin 600 mg at bedtime and started to assist with sleep. Seroquel 100 mg is to be given as needed for hallucinations. hospital course: Patient was admitted to the adult psychiatric unit provided a supportive environment with access to both therapy staff and nursing staff to assist in coping with events over the past 3 days. He avail himself of these services. He participated in individual and group therapies. He was started on Celexa and provided when necessary medication for alcohol withdrawal. He experienced no auditory or visual hallucinations. His vital signs had improved considerably over 24 hours. At that time, he was demanding discharge. It was recommended that he remain in the hospital for further treatment for possible delayed signs and symptoms of alcohol withdrawal. He refused that recommendation and left AGAINST MEDICAL ADVICE. Involuntary Hold Information 2 96 Hour Hold: 96 Hour Involuntary Admission: Yes 96 Hour Hold Ending Date: 11/12/19 96 Hour Hold Ending Time: 12:01 Mental Status Exam MSE Comments: Discharge Mental Status Exam: Appearance: hygiene is good; no gross neurological deficits., gait is unremarkable; AIMS=0 Speech: Speech is of normal rate and rhythm and easily understood. Thought processes: Thought processes are abstract. Judgment is adequate for safety. Associations: intact Psychotic processes: There is no indication of guarding or paranoia. There is no attention to the internal stimuli. Auditory and visual hallucinations are denied. Judgment: Insight is fair. Problem solving skills are adequate for safety. Orientation: The patient is oriented to person, place time and situation. Memory: no deficits noted in immediate, intermediate, or remote spheres. Attention: The patient is alert and interpersonally engaged. Language: Verbalizations are coherent. Fund of knowledge: Fund of knowledge is adequate. Affect/Mood: Affect is consistent with a euthymic mood. denied suicidal ideation Affective range is appropriate. Psychosis: perception unimpaired except through cognitive distortion; reality testing intact. Discharge Data Data Completed and Pending: Completed Studies During Hospitalization Category Date Time Status XR chest 1V horacio ble [id number] Urgent Exams 11/03/19 17:45 [place] [id number] Routine Ultrasound 11/04/19 20:07 Completed Vitals: Last Vital Signs Temp 97.6 F 11/06/19 06:00 Pulse 104 H 11/06/19 06:00 Resp 22 H 11/06/19 06:00 BP 155/101 11/06/19 06:00 Pulse Ox 97 11/06/19 06:00 Discharge Plan Discharge Patient Disposition: Left Against Medical Advice Condition: Stable Prescriptions: New citalopram 20 mg Tablet 20 mg PO DAILY Qty: 30 RF: 4 pantoprazole 40 mg Tablet,Delayed Release (Dr/Ec) 40 mg PO DAILY Qty: 30 RF: 3 folic acid 1 mg Tablet 1 mg PO DAILY Qty: 30 RF: 0 imipramine HCl 25 mg Tablet 50 mg PO BEDTIME Qty: 30 RF: 1 Vitamin B-1 (mononitrate) 100 mg Tablet 100 mg PO DAILY Qty: 30 RF: 0 Thera 400 mcg Tablet 1 tab PO DAILY Qty: 30 RF: 0 Continued gabapentin 300 mg Capsule 300 mg PO TID Qty: 90 RF: 3 Discontinued trazodone 100 mg tablet 100 mg PO DAILY PRN (Reason: insomnia) Qty: 14 RF: 0 paroxetine HCl [Paxil] 40 mg Tablet 40 mg PO DAILY RF: 0 Discharge Orders: Discharge Order (Routine); Ordered 11/06/19 Ordered By: Ricky Sue Referrals: [facility] [Outside] - 4-7 days Discharge Diet: Usual diet Discharge Activity: Increase activity as tolerated Activity Restrictions/Additional Instructions: the patient was educated with regard to short-term and long-term effects of clinical depression and alcohol abuse. It was emphasized repeatedly that his prognosis without further attention to both of these problems left him at increased vulnerability to medical comorbidity and shortened lifespan. We also discussed the problems of living alone and its effect on risk factors also for medical comorbidity and suicide. He stated his intent to gather his belongings in a trailer and have his brother move him to [place] to live on his family property. Follow up as a walk in at [facility], walk in hours are from 7:30AM- 2:00PM Tuesday through Tuesday , first come, first seen. Once you do this assessment you will be referred for outpatient mental health services. [address] [facility]. [facility] [address] [place] [address] Follow-up with Dr. Harmon at [facility] Address: [address] [address] Tuesday, November 12, 2019 @ 2:[address] 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
[2019-11-06 13:31] VITALS: BP 154/100; PULSE 105; RESP 20; TEMP 36.5; O2SAT 96
[2019-11-06 13:50] VITALS: BP 154/100; PULSE 105; RESP 20; TEMP 36.5; O2SAT 96
== END 2019-11-06 17:00 | disposition left against medical advice (07) | DRG 918 ==
LOC: ER 19:20 → ICU 19:32 → NP 11-04 19:20
PROVIDERS: Admitting Provider Family Medicine; Emergency Provider Family Medicine; Visit Provider Internal Medicine
DX: T50.992A Poisoning by other drugs, medicaments and biological substances, intentional self-harm, initial encounter (principal); Y92.9 Unspecified place or not applicable; Y90.8 Blood alcohol level of 240 mg/100 ml or more; J44.9 Chronic obstructive pulmonary disease, unspecified; F41.8 Other specified anxiety disorders; F10.920 Alcohol use, unspecified with intoxication, uncomplicated; F17.210 Nicotine dependence, cigarettes, uncomplicated; G89.29 Other chronic pain; M54.9 Dorsalgia, unspecified; Z53.29 Procedure and treatment not carried out because of patient's decision for other reasons
CPT/HCPCS: 12345; 36415; 71045; 76705; 80053; 80074; 80307; 81003; 82607; 82746; 83690; 83735; 84100; 84443; 85025; 85610; 93005; 94640; 96372; 99284; J1650; J2405; J3411; J3490; J7030